=== PATIENT | female | born 1965 | race Caucasian/White ===

== ENCOUNTER 2023-09-05 14:17 | Inpatient (IN) | payer OTHER ==
[~2023-09-05] VITALS: Ht 170.2 cm; Wt 95.7 kg
[2023-09-05] MEDS ORDERED: MELATONIN 5 MG TABLET PO PRN (15:30)
[2023-09-05] MEDS ORDERED: ACETAMINOPHEN 325 MG TABLET PO PRN (15:30)
[2023-09-05 16:30] VITALS: BP 107/62; PULSE 63; RESP 18; TEMP 98.5; O2SAT 99
[2023-09-05 16:42] VITALS: O2SAT 99
[2023-09-05] MEDS ORDERED: *PATIENT'S OWN MED [ENTER DRUG, DOSE, FREQUENCY IN COMMENTS] CLINICAL ONE (16:45)
[2023-09-05] MEDS ORDERED: INFLUENZA VIRUS VACCINE QVS 2023-24 (6MO+)/PF 60 MCG/0.5 ML SYRINGE IM. ONE (17:45)
[2023-09-05] MEDS: ACETAMINOPHEN 500 MG TABLET PO SCH (18:02)
[2023-09-05] MEDS: FERROUS SULFATE 325 MG EC TABLET PO SCH (18:02)
[2023-09-05 18:05] VITALS: RESP 20; O2SAT 99
[2023-09-05 20:30] VITALS: O2SAT 99
[2023-09-05] MEDS: SENNOSIDES 8.6 MG TABLET PO SCH (21:00)
[2023-09-05] MEDS: DOCUSATE SODIUM 250 MG CAPSULE PO SCH (21:00)
[2023-09-05] MEDS ORDERED: BISACODYL 5 MG EC TABLET PO PRN (21:45)
[2023-09-05 22:00] VITALS: BP 104/58; PULSE 76; RESP 18; TEMP 98; O2SAT 95
[2023-09-06] MEDS: TraZODone HCL 150 MG TABLET PO SCH ×2 (01:12→20:57)
[2023-09-06] MEDS: OxyCODONE HCL 10 MG IR TABLET PO PRN ×4 (03:15→20:59)
[2023-09-06] MEDS: ACETAMINOPHEN 500 MG TABLET PO SCH ×4 (06:00→17:08)
[2023-09-06] MEDS: LEVOTHYROXINE SODIUM 100 MCG TABLET PO SCH (06:31)
[2023-09-06] MEDS ORDERED: EMTRICITABINE/TENOFOVIR 200-300 MG TABLET PO SCH ×2 (07:00→09:00)
[2023-09-06 07:35] LABS: BASOPHILS % (AUTO) 0.6 % (0.0-2.0); EOSINOPHILS % (AUTO) 0.4 % (1.0-6.0); HEMATOCRIT 27.5 % (36-46); HEMOGLOBIN 9.3 g/dL (12.0-16.0); LYMPHOCYTES # (AUTO) 0.8 K/uL (1.0-4.8); LYMPHOCYTES % (AUTO) 24.2 % (22.0-44.0); MEAN CORPUSCULAR HEMOGLOBIN 35.8 pg (26.0-34.0); MEAN CORPUSCULAR HGB CONC 33.7 G/dL (31.0-37.0); MEAN CORPUSCULAR VOLUME 106 fL (80-100); MONOCYTES # (AUTO) 0.5 K/uL (0.1-1.0); NEUTROPHILS # (AUTO) 2.1 K/uL (1.8-7.7); NEUTROPHILS % (AUTO) 60.8 % (40.0-70.0); PLATELET COUNT (AUTO) 206 K/uL (150-450); RED BLOOD CELL COUNT(AUTO) 2.59 MIL/uL (4.00-5.20); RED CELL DISTRIBUTION WIDTH 15.4 % (11.5-14.5); WHITE BLOOD COUNT (AUTO) 3.5 K/uL (4.5-11.0)
[2023-09-06 07:48] LABS: ALANINE AMINOTRANSFERASE 23 U/L (12-78); ALBUMIN 1.3 g/dL (3.4-5.0); ALKALINE PHOSPHATASE 188 U/L (46-116); ANION GAP 4 mmol/L (8-16); ASPARTATE AMINOTRANSFERASE 67 U/L (15-37); CALCIUM, TOTAL 7.6 mg/dL (8.8-10.5); CARBON DIOXIDE 27 mmol/L (22-29); CHLORIDE 108 mmol/L (98-107); CREATININE 0.55 mg/dL (0.60-1.30); GLOMERULAR FILTR. RATE CALC > 60 mL/min (>60); GLUCOSE,RANDOM 89 mg/dL (70-110); POTASSIUM 3.8 mmol/L (3.5-5.1); SODIUM SERUM 139 mmol/L (136-145); TOTAL PROTEIN, SERUM 4.9 g/dL (6.4-8.2); UREA NITROGEN, BLOOD 6 mg/dL (7-18)
[2023-09-06 08:22] VITALS: BP 104/53; PULSE 73; RESP 19; TEMP 98; O2SAT 95
[2023-09-06] MEDS: OLOPATADINE HCL 0.1% 5 ML OPHTHALMIC SOLUTION OU SCH (08:23)
[2023-09-06] MEDS: SERTRALINE HCL 50 MG TABLET PO SCH (08:23)
[2023-09-06] MEDS: MULTIVITAMINS WITH MINERALS, THERAPEUTIC TABLET PO SCH (08:23)
[2023-09-06] MEDS: FERROUS SULFATE 325 MG EC TABLET PO SCH ×3 (08:23→17:09)
[2023-09-06] MEDS: CHOLECALCIFEROL (VIT D3) 2,000 UNITS [50 MCG] TABLET PO SCH (08:23)
[2023-09-06] MEDS: ETHYL ALCOHOL 62% ANTISEPTIC NASAL SANITIZER 0.6 ML AMPUL NASAL SCH ×2 (08:23→20:55)
[2023-09-06] MEDS: THIAMINE 100 MG TABLET PO SCH (08:24)
[2023-09-06] MEDS: FOLIC ACID 1 MG TABLET PO SCH (08:24)
[2023-09-06 08:32] LABS: RBC MORPHOLOGY COMMENT ABNORMAL RBC MORPH
[2023-09-06] MEDS ORDERED: CHOLECALCIFEROL (VIT D3) 2,000 UNITS [50 MCG] TABLET PO SCH (09:00)
[2023-09-06 09:22] VITALS: O2SAT 95
[2023-09-06] MEDS: MICONAZOLE NITRATE 200 MG VAGINAL SUPP [3] VG SCH (14:55)
[2023-09-06 20:00] VITALS: BP 108/65; PULSE 63; RESP 16; TEMP 98; O2SAT 97
[2023-09-06] MEDS: EMTRICITABINE PO SCH (20:56)
[2023-09-06] MEDS: TENOFOVIR ALAFENAMIDE PO SCH (20:56)
[2023-09-06] MEDS: RILPIVIRINE PO SCH (20:56)
[2023-09-06] MEDS: SENNOSIDES 8.6 MG TABLET PO SCH (20:57)
[2023-09-06] MEDS: DOCUSATE SODIUM 250 MG CAPSULE PO SCH (20:57)
[2023-09-06] MEDS ORDERED: *PATIENT'S OWN MED [ENTER DRUG, DOSE, FREQUENCY IN COMMENTS] CLINICAL SCH (21:00)
[2023-09-07 00:37] VITALS: O2SAT 97
[2023-09-07] MEDS: OxyCODONE HCL 10 MG IR TABLET PO PRN ×3 (03:55→20:47)
[2023-09-07] MEDS: ACETAMINOPHEN 500 MG TABLET PO SCH ×3 (06:43→17:14)
[2023-09-07] MEDS: LEVOTHYROXINE SODIUM 100 MCG TABLET PO SCH (06:44)
[2023-09-07 09:10] VITALS: O2SAT 98
[2023-09-07 09:15] VITALS: BP 124/58; PULSE 55; RESP 18; TEMP 98.1; O2SAT 98
[2023-09-07] MEDS: ETHYL ALCOHOL 62% ANTISEPTIC NASAL SANITIZER 0.6 ML AMPUL NASAL SCH ×2 (09:25→20:47)
[2023-09-07] MEDS: FERROUS SULFATE 325 MG EC TABLET PO SCH ×2 (09:25→17:14)
[2023-09-07] MEDS: FOLIC ACID 1 MG TABLET PO SCH (09:26)
[2023-09-07] MEDS: MULTIVITAMINS WITH MINERALS, THERAPEUTIC TABLET PO SCH (09:26)
[2023-09-07] MEDS: SERTRALINE HCL 50 MG TABLET PO SCH (09:26)
[2023-09-07] MEDS: CHOLECALCIFEROL (VIT D3) 2,000 UNITS [50 MCG] TABLET PO SCH (09:26)
[2023-09-07] MEDS: THIAMINE 100 MG TABLET PO SCH (09:26)
[2023-09-07] MEDS: OLOPATADINE HCL 0.1% 5 ML OPHTHALMIC SOLUTION OU SCH (09:28)
[2023-09-07] MEDS: MICONAZOLE NITRATE 200 MG VAGINAL SUPP [3] VG SCH (09:45)
[2023-09-07 20:02] VITALS: BP 105/74; PULSE 68; RESP 18; TEMP 98.9; O2SAT 98
[2023-09-07] MEDS: DOCUSATE SODIUM 250 MG CAPSULE PO SCH (20:34)
[2023-09-07] MEDS: SENNOSIDES 8.6 MG TABLET PO SCH (20:43)
[2023-09-07] MEDS: EMTRICITABINE PO SCH (20:47)
[2023-09-07] MEDS: RILPIVIRINE PO SCH (20:47)
[2023-09-07] MEDS: TENOFOVIR ALAFENAMIDE PO SCH (20:47)
[2023-09-07] MEDS: TraZODone HCL 150 MG TABLET PO SCH (20:48)
[2023-09-07 23:32] VITALS: O2SAT 98
[2023-09-08] MEDS: ACETAMINOPHEN 500 MG TABLET PO SCH ×4 (06:34→17:43)
[2023-09-08] MEDS: LEVOTHYROXINE SODIUM 100 MCG TABLET PO SCH (06:34)
[2023-09-08 08:05] VITALS: BP 134/96; PULSE 77; RESP 18; TEMP 98.1; O2SAT 95
[2023-09-08 08:06] LABS: THYROID STIMULATING HORMONE 8.52 uIU/mL (0.36-3.74)
[2023-09-08] MEDS: MULTIVITAMINS WITH MINERALS, THERAPEUTIC TABLET PO SCH (08:18)
[2023-09-08] MEDS: ETHYL ALCOHOL 62% ANTISEPTIC NASAL SANITIZER 0.6 ML AMPUL NASAL SCH ×2 (08:18→20:36)
[2023-09-08] MEDS: FERROUS SULFATE 325 MG EC TABLET PO SCH ×3 (08:18→16:50)
[2023-09-08] MEDS: OLOPATADINE HCL 0.1% 5 ML OPHTHALMIC SOLUTION OU SCH (08:18)
[2023-09-08] MEDS: FOLIC ACID 1 MG TABLET PO SCH (08:18)
[2023-09-08] MEDS: OxyCODONE HCL 10 MG IR TABLET PO PRN ×2 (08:19→18:51)
[2023-09-08] MEDS: CHOLECALCIFEROL (VIT D3) 2,000 UNITS [50 MCG] TABLET PO SCH (08:19)
[2023-09-08] MEDS: SERTRALINE HCL 50 MG TABLET PO SCH (08:19)
[2023-09-08] MEDS: THIAMINE 100 MG TABLET PO SCH (08:19)
[2023-09-08] MEDS: MICONAZOLE NITRATE 200 MG VAGINAL SUPP [3] VG SCH (08:19)
[2023-09-08] MEDS: ENOXAPARIN SODIUM 40 MG/0.4 ML PF SYRINGE SQ SCH (10:05)
[2023-09-08] MEDS ORDERED: DOCUSATE SODIUM 283 MG/5 ML MINI-ENEMA PR PRN (15:30)
[2023-09-08 20:00] VITALS: O2SAT 95
[2023-09-08] MEDS: NYSTATIN 30 GM CREAM TP SCH (20:37)
[2023-09-08] MEDS: TENOFOVIR ALAFENAMIDE PO SCH (20:37)
[2023-09-08] MEDS: TraZODone HCL 150 MG TABLET PO SCH (20:37)
[2023-09-08] MEDS: RILPIVIRINE PO SCH (20:37)
[2023-09-08] MEDS: EMTRICITABINE PO SCH (20:37)
[2023-09-08] MEDS: SENNOSIDES 8.6 MG TABLET PO SCH (20:38)
[2023-09-08] MEDS: DOCUSATE SODIUM 250 MG CAPSULE PO SCH (20:38)
[2023-09-08 21:00] VITALS: BP 109/66; PULSE 70; RESP 18; TEMP 98.1; O2SAT 95
[2023-09-09] MEDS: ACETAMINOPHEN 500 MG TABLET PO SCH ×2 (06:00)
[2023-09-09] MEDS: LEVOTHYROXINE SODIUM 100 MCG TABLET PO SCH (06:12)
[2023-09-09 08:09] VITALS: BP 105/53; PULSE 72; RESP 19; TEMP 98.1; O2SAT 95
[2023-09-09] MEDS: OxyCODONE HCL 10 MG IR TABLET PO PRN (08:09)
[2023-09-09] MEDS: MULTIVITAMINS WITH MINERALS, THERAPEUTIC TABLET PO SCH (08:11)
[2023-09-09] MEDS: NYSTATIN 30 GM CREAM TP SCH ×2 (08:11→20:04)
[2023-09-09] MEDS: ENOXAPARIN SODIUM 40 MG/0.4 ML PF SYRINGE SQ SCH (08:11)
[2023-09-09] MEDS: FERROUS SULFATE 325 MG EC TABLET PO SCH ×3 (08:11→16:24)
[2023-09-09] MEDS: CHOLECALCIFEROL (VIT D3) 2,000 UNITS [50 MCG] TABLET PO SCH (08:11)
[2023-09-09] MEDS: SERTRALINE HCL 50 MG TABLET PO SCH (08:11)
[2023-09-09] MEDS: THIAMINE 100 MG TABLET PO SCH (08:12)
[2023-09-09] MEDS: FOLIC ACID 1 MG TABLET PO SCH (08:12)
[2023-09-09] MEDS: ETHYL ALCOHOL 62% ANTISEPTIC NASAL SANITIZER 0.6 ML AMPUL NASAL SCH ×2 (08:12→20:03)
[2023-09-09] MEDS: OLOPATADINE HCL 0.1% 5 ML OPHTHALMIC SOLUTION OU SCH (08:12)
[2023-09-09 09:09] VITALS: O2SAT 95
[2023-09-09] MEDS ORDERED: ACETAMINOPHEN 500 MG TABLET PO PRN (10:15)
[2023-09-09 11:13] LABS: T4 (THYROXINE) 9.5 mcg/dL (4.7-13.3)
[2023-09-09] MEDS: DICLOFENAC SODIUM 1% 100 GM GEL [2GM] TP SCH ×2 (15:49→20:04)
[2023-09-09] MEDS: OxyCODONE HCL 5 MG IR TABLET PO PRN (18:30)
[2023-09-09] MEDS: RILPIVIRINE PO SCH (20:03)
[2023-09-09] MEDS: TENOFOVIR ALAFENAMIDE PO SCH (20:03)
[2023-09-09] MEDS: EMTRICITABINE PO SCH (20:03)
[2023-09-09] MEDS: TraZODone HCL 150 MG TABLET PO SCH (20:04)
[2023-09-09] MEDS: DOCUSATE SODIUM 250 MG CAPSULE PO SCH (20:34)
[2023-09-09] MEDS: SENNOSIDES 8.6 MG TABLET PO SCH (20:34)
[2023-09-09 20:55] VITALS: BP 93/59; PULSE 75; RESP 18; TEMP 98.5; O2SAT 96
[2023-09-09 21:50] VITALS: O2SAT 96
[2023-09-10] MEDS: LEVOTHYROXINE SODIUM 100 MCG TABLET PO SCH (06:01)
[2023-09-10] MEDS: ETHYL ALCOHOL 62% ANTISEPTIC NASAL SANITIZER 0.6 ML AMPUL NASAL SCH ×2 (08:11→20:22)
[2023-09-10] MEDS: OLOPATADINE HCL 0.1% 5 ML OPHTHALMIC SOLUTION OU SCH (08:12)
[2023-09-10] MEDS: FERROUS SULFATE 325 MG EC TABLET PO SCH ×3 (08:12→16:09)
[2023-09-10] MEDS: SERTRALINE HCL 50 MG TABLET PO SCH (08:12)
[2023-09-10] MEDS: THIAMINE 100 MG TABLET PO SCH (08:12)
[2023-09-10] MEDS: ENOXAPARIN SODIUM 40 MG/0.4 ML PF SYRINGE SQ SCH (08:13)
[2023-09-10] MEDS: CHOLECALCIFEROL (VIT D3) 2,000 UNITS [50 MCG] TABLET PO SCH (08:13)
[2023-09-10] MEDS: FOLIC ACID 1 MG TABLET PO SCH (08:13)
[2023-09-10] MEDS: NYSTATIN 30 GM CREAM TP SCH ×2 (08:13→20:23)
[2023-09-10] MEDS: DICLOFENAC SODIUM 1% 100 GM GEL [2GM] TP SCH ×4 (08:14→20:41)
[2023-09-10 08:15] VITALS: BP 123/65; PULSE 66; RESP 17; TEMP 98.8; O2SAT 97
[2023-09-10] MEDS: MULTIVITAMINS WITH MINERALS, THERAPEUTIC TABLET PO SCH (08:16)
[2023-09-10 10:43] VITALS: O2SAT 97
[2023-09-10] MEDS: OxyCODONE HCL 10 MG IR TABLET PO PRN (11:50)
[2023-09-10 20:00] VITALS: O2SAT 96
[2023-09-10] MEDS: DOCUSATE SODIUM 250 MG CAPSULE PO SCH (20:15)
[2023-09-10] MEDS: SENNOSIDES 8.6 MG TABLET PO SCH (20:15)
[2023-09-10 20:22] VITALS: BP 106/61; PULSE 64; RESP 18; TEMP 98; O2SAT 96
[2023-09-10] MEDS: EMTRICITABINE PO SCH (20:22)
[2023-09-10] MEDS: TENOFOVIR ALAFENAMIDE PO SCH (20:22)
[2023-09-10] MEDS: OxyCODONE HCL 5 MG IR TABLET PO PRN (20:22)
[2023-09-10] MEDS: RILPIVIRINE PO SCH (20:22)
[2023-09-10] MEDS: TraZODone HCL 150 MG TABLET PO SCH (20:22)
[2023-09-10] MEDS ORDERED: DICL100G60 TP (23:45)
[2023-09-10] MEDS ORDERED: Patanol OU (23:45)
[2023-09-10] MEDS ORDERED: MULT-248 PO (23:45)
[2023-09-10] MEDS ORDERED: CHOL25TA4 PO (23:45)
[2023-09-10] MEDS ORDERED: SERT-158 PO (23:45)
[2023-09-10] MEDS ORDERED: FERR325T27 PO (23:45)
[2023-09-10] MEDS ORDERED: LEVO100 PO (23:45)
[2023-09-10] MEDS ORDERED: SENN-376 PO (23:45)
[2023-09-10] MEDS ORDERED: TRAZ-257 PO (23:45)
[2023-09-10] MEDS ORDERED: EMTR1TAB12 PO (23:45)
[2023-09-10] MEDS ORDERED: DOCU-412 PO (23:45)
[2023-09-10] MEDS ORDERED: FOLI-130 PO (23:45)
[2023-09-10] MEDS ORDERED: THIA100T80 PO (23:45)
[2023-09-11] MEDS: LEVOTHYROXINE SODIUM 100 MCG TABLET PO SCH (06:00)
[2023-09-11] MEDS: ENOXAPARIN SODIUM 40 MG/0.4 ML PF SYRINGE SQ SCH (08:22)
[2023-09-11] MEDS: OLOPATADINE HCL 0.1% 5 ML OPHTHALMIC SOLUTION OU SCH (08:23)
[2023-09-11] MEDS: NYSTATIN 30 GM CREAM TP SCH ×2 (08:23→20:29)
[2023-09-11] MEDS: CHOLECALCIFEROL (VIT D3) 2,000 UNITS [50 MCG] TABLET PO SCH (08:24)
[2023-09-11] MEDS: SERTRALINE HCL 50 MG TABLET PO SCH (08:24)
[2023-09-11] MEDS: FOLIC ACID 1 MG TABLET PO SCH (08:24)
[2023-09-11] MEDS: MULTIVITAMINS WITH MINERALS, THERAPEUTIC TABLET PO SCH (08:24)
[2023-09-11] MEDS: FERROUS SULFATE 325 MG EC TABLET PO SCH ×3 (08:24→17:23)
[2023-09-11] MEDS: ETHYL ALCOHOL 62% ANTISEPTIC NASAL SANITIZER 0.6 ML AMPUL NASAL SCH ×2 (08:24→20:29)
[2023-09-11] MEDS: THIAMINE 100 MG TABLET PO SCH (08:24)
[2023-09-11] MEDS: DICLOFENAC SODIUM 1% 100 GM GEL [2GM] TP SCH ×3 (08:25→20:26)
[2023-09-11 09:53] VITALS: BP 98/57; PULSE 62; RESP 18; TEMP 97.9; O2SAT 97
[2023-09-11] MEDS: OxyCODONE HCL 10 MG IR TABLET PO PRN (10:21)
[2023-09-11 10:30] VITALS: O2SAT 97
[2023-09-11 20:00] VITALS: O2SAT 97
[2023-09-11] MEDS: RILPIVIRINE PO SCH (20:25)
[2023-09-11] MEDS: EMTRICITABINE PO SCH (20:25)
[2023-09-11] MEDS: TENOFOVIR ALAFENAMIDE PO SCH (20:25)
[2023-09-11] MEDS: OxyCODONE HCL 5 MG IR TABLET PO PRN (20:25)
[2023-09-11] MEDS: TraZODone HCL 150 MG TABLET PO SCH (20:25)
[2023-09-11] MEDS: DOCUSATE SODIUM 250 MG CAPSULE PO SCH (20:29)
[2023-09-11] MEDS: SENNOSIDES 8.6 MG TABLET PO SCH (20:29)
[2023-09-12] MEDS: LEVOTHYROXINE SODIUM 100 MCG TABLET PO SCH (06:00)
[2023-09-12 07:55] VITALS: BP 103/53; PULSE 64; RESP 18; TEMP 99; O2SAT 96
[2023-09-12 08:00] VITALS: O2SAT 96
[2023-09-12] MEDS: ETHYL ALCOHOL 62% ANTISEPTIC NASAL SANITIZER 0.6 ML AMPUL NASAL SCH (08:07)
[2023-09-12] MEDS: FERROUS SULFATE 325 MG EC TABLET PO SCH ×4 (08:07→16:33)
[2023-09-12] MEDS: OLOPATADINE HCL 0.1% 5 ML OPHTHALMIC SOLUTION OU SCH (08:08)
[2023-09-12] MEDS: FOLIC ACID 1 MG TABLET PO SCH ×2 (08:08→10:52)
[2023-09-12] MEDS: MULTIVITAMINS WITH MINERALS, THERAPEUTIC TABLET PO SCH ×2 (08:09→10:30)
[2023-09-12] MEDS: CHOLECALCIFEROL (VIT D3) 2,000 UNITS [50 MCG] TABLET PO SCH ×2 (08:09→10:31)
[2023-09-12] MEDS: THIAMINE 100 MG TABLET PO SCH ×2 (08:10→10:52)
[2023-09-12] MEDS: SERTRALINE HCL 50 MG TABLET PO SCH ×2 (08:10→10:31)
[2023-09-12] MEDS: ENOXAPARIN SODIUM 40 MG/0.4 ML PF SYRINGE SQ SCH (08:10)
[2023-09-12] MEDS: DICLOFENAC SODIUM 1% 100 GM GEL [2GM] TP SCH ×2 (08:11→15:41)
[2023-09-12] MEDS: NYSTATIN 30 GM CREAM TP SCH (08:11)
[2023-09-12 08:30] VITALS: TEMP 98.3
[2023-09-12] MEDS: OxyCODONE HCL 10 MG IR TABLET PO PRN (09:53)
== END 2023-09-12 17:30 | DRG 347 ==
LOC: 2WR 15:28
PROVIDERS: ADMIT Physical Medicine & Rehabilitation; ATTEND Physical Medicine & Rehabilitation
DX: M48.02 Spinal stenosis, cervical region (principal); E43 Unspecified severe protein-calorie malnutrition; M50.021 Cervical disc disorder at C4-C5 level with myelopathy; D69.6 Thrombocytopenia, unspecified; D64.9 Anemia, unspecified; F11.20 Opioid dependence, uncomplicated; R26.9 Unspecified abnormalities of gait and mobility; E03.9 Hypothyroidism, unspecified; E66.01 Morbid (severe) obesity due to excess calories; F32.A Depression, unspecified; G47.33 Obstructive sleep apnea (adult) (pediatric); G62.9 Polyneuropathy, unspecified; I10 Essential (primary) hypertension; N76.0 Acute vaginitis; N39.0 Urinary tract infection, site not specified; R41.89 Other symptoms and signs involving cognitive functions and awareness; R15.9 Full incontinence of feces; R32 Unspecified urinary incontinence; Z98.84 Bariatric surgery status; Z79.899 Other long term (current) drug therapy; Z68.33 Body mass index [BMI] 33.0-33.9, adult; Z88.5 Allergy status to narcotic agent; Z88.8 Allergy status to other drugs, medicaments and biological substances
CPT/HCPCS: 80053; 82607; 82746; 83036; 84436; 84443; 85025; 87081; 90686; 92507; 92523; 92610; 93970; 97110; 97116; 97163; 97167; 97530; 97535; 99366; J1650; Q9967